=== PATIENT | male | born 1960 | race African-American/Black ===

== ENCOUNTER 2016-11-24 08:26 | Day surgery (SDC) | payer BC ==
[2016-11-18 18:26] VITALS: BMI 31.1
[~2016-11-24 08:26] MED LIST: LACTATED RINGERS 1,000 ML IV SCH; LIDOCAINE 1% 20 ML VIAL (10MG/ML) FOR IV START INTRADERMA PRN
[2016-11-24 08:45] VITALS: TEMP 98
[2016-11-24] MEDS ORDERED: PROPOFOL 10 MG/ML 20 ML VIAL IV ONE (09:43)
--- NOTE | 2016-11-24 09:53 | P.GSHP ---
History of Present Illness H&P Date: 11/24/16 Chief Complaint: Screening colonoscopy Recreation Therapy Aide 56-year-old male referred from Dr. Aden. Patient presents today for screening colonoscopy. He's never had a colonoscopy before. - Constitutional Constitutional: Reports as per HPI Past Medical History Past Medical History: No Reported History Additional Past Medical History / Comment(s): ARTHRITIS WITH PAIN ALL OVER- ( STATES DR HAS TESTING PLANNED) ,CARPAL TUNNEL SYNDROME. History of Any Multi-Drug Resistant Organisms: None Reported Past Surgical History: No Surgical Hx Reported Additional Past Surgical History / Comment(s): EMERGENCY SURGERY 20 YRS AGO TO HAVE METAL REMOVED FROM HEAD. Past Anesthesia/Blood Transfusion Reactions: No Reported Reaction Past Psychological History: No Psychological Hx Reported Smoking Status: Current every day smoker Past Alcohol Use History: None Reported Additional Past Alcohol Use History / Comment(s): SMOKES 1/2 PPD. SMOKING FOR 25-28 YEARS. Past Drug Use History: None Reported - Past Family History Mother Family Medical History: Cancer Additional Family Medical History / Comment(s): OVARIAN CANCER Medications and Allergies Home Medications Medication Instructions Recorded Confirmed Type Ibuprofen [Motrin] 200 - 400 mg PO Q6HR PRN 11/18/16 11/18/16 History Meloxicam [Mobic] 15 mg PO DAILY 11/18/16 11/18/16 History Allergies Allergy/AdvReac Type Severity Reaction Status Date / Time No Known Allergies Allergy Verified 11/18/16 18:18 Surgical - Exam Vital Signs Temp Pulse Resp BP Pulse Ox 98.0 F 70 16 140/97 96 11/24/16 08:40 11/24/16 08:40 11/24/16 08:40 11/24/16 08:40 11/24/16 08:40 - General well developed, no distress - Eyes PERRL - ENT normal pinna - Neck no masses - Respiratory normal expansion - Cardiovascular Rhythm: regular - Abdomen Abdomen: soft, non tender Assessment and Plan Plan: We'll perform screening colonoscopy.
--- NOTE | 2016-11-24 10:08 | P.OP ---
Date of Procedure: 11/24/16 Preoperative Diagnosis: Screening colonoscopy Postoperative Diagnosis: Diverticulosis Sigmoid colon polyp Rectal polyp Procedure(s) Performed: Colonoscopy Anesthesia: MAC Surgeon: Ham Pruitt Pathology: other (Rectal, sigmoid colon polyp) Condition: stable Disposition: PACU Description of Procedure: The patient's placed on the endoscopy table in the lateral position. He received IV sedation. Digital rectal exam was performed which revealed no abnormalities. The flexible colonoscope was then placed patient anus passed throughout the entire colon. The ileocecal valve was visualized. The cecum, ascending and transverse colon appeared normal. In the descending and; there is mild diverticular changes. In the sigmoid colon there was a polyp seen this removed the forcep. The scope was then brought back the rectum and another polyp was seen and this was biopsied removed. The scope was withdrawn for patient.
[2016-11-24] MEDS ORDERED: IV FLUID CONTINUATION 1,000 ML IV ONE (10:09)
[2016-11-24 11:21] VITALS: BP 159/98; PULSE 79; RESP 18
== END 2016-11-24 11:29 | disposition home or self-care (01) ==
LOC: ORWHC2ENDO 08:26
PROVIDERS: ATTEND Surgery
DX: Z12.11 Encounter for screening for malignant neoplasm of colon (principal); K57.30 Diverticulosis of large intestine without perforation or abscess without bleeding; D12.5 Benign neoplasm of sigmoid colon; K62.1 Rectal polyp; F17.200 Nicotine dependence, unspecified, uncomplicated; Z79.1 Long term (current) use of non-steroidal anti-inflammatories (NSAID); Z79.899 Other long term (current) drug therapy
CPT/HCPCS: 88305; 45380; J2704; 99153

== ENCOUNTER 2017-08-24 23:35 | Emergency (ER) | payer BC, OTHER ==
[2017-08-25] MEDS ORDERED: LORazepam 2 MG/ML INJ IM STA (00:08)
--- NOTE | 2017-08-25 00:40 | ED ---
General Adult HPI - General Chief complaint: Shortness of Breath Stated complaint: JODIE Time Seen by Provider: 08/24/17 23:46 Source: patient, family, RN notes reviewed Mode of arrival: wheelchair Limitations: no limitations - History of Present Illness Initial comments: 57 yo male presents with shortness of breath and difficult to breathing. No known history of breathing problems, no asthma, no COPD, patient is a nonsmoker. No history of congestive heart failure. Patient does have history of anxiety, he states this feels like his anxiety. He's recently started on Zoloft. He does take Xanax. He took 0.25 mg Xanax prior to arrival. Patient is tearful. No hallucinations, no suicidal or homicidal ideation. Patient does have chronic left lower extremity pain status post blood clot. - Related Data Home Medications Medication Instructions Recorded Confirmed Ibuprofen [Motrin] 200 - 400 mg PO Q6HR PRN 11/18/16 11/18/16 Meloxicam [Mobic] 15 mg PO DAILY 11/18/16 11/18/16 Previous Rx's Medication Instructions Recorded ALPRAZolam [Xanax] 0.5 mg PO BID PRN #15 tablet 08/25/17 Allergies Allergy/AdvReac Type Severity Reaction Status Date / Time No Known Allergies Allergy Verified 08/24/17 23:42 Review of Systems ROS Statement: Those systems with pertinent positive or pertinent negative responses have been documented in the HPI. ROS Other: All systems not noted in ROS Statement are negative. Past Medical History Past Medical History: No Reported History, Myocardial Infarction ([place]) Additional Past Medical History / Comment(s): ARTHRITIS WITH PAIN ALL OVER- ( STATES DR HAS TESTING PLANNED) ,CARPAL TUNNEL SYNDROME. aneursyn to right leg History of Any Multi-Drug Resistant Organisms: None Reported Past Surgical History: No Surgical Hx Reported Additional Past Surgical History / Comment(s): EMERGENCY SURGERY 20 YRS AGO TO HAVE METAL REMOVED FROM HEAD. Past Anesthesia/Blood Transfusion Reactions: No Reported Reaction Past Psychological History: Anxiety Smoking Status: Former smoker Past Alcohol Use History: None Reported Past Drug Use History: Marijuana - Past Family History Mother Family Medical History: Cancer Additional Family Medical History / Comment(s): OVARIAN CANCER General Exam Limitations: no limitations General appearance: alert, anxious Head exam: Present: atraumatic, normocephalic Eye exam: Present: normal appearance, PERRL ENT exam: Present: normal exam Neck exam: Present: normal inspection. Absent: tenderness, meningismus Respiratory exam: Present: normal lung sounds bilaterally, other (Patient is tachypneic, with excellent bilateral air entry). Absent: wheezes, rales Cardiovascular Exam: Present: regular rate, normal rhythm GI/Abdominal exam: Present: soft. Absent: distended, tenderness Extremities exam: Present: normal inspection, normal capillary refill, other ( Well-healed scar on the left lower extremity). Absent: pedal edema Neurological exam: Present: alert, oriented X3, CN II-XII intact. Absent: motor sensory deficit Psychiatric exam: Present: anxious Skin exam: Present: warm, dry, intact. Absent: cyanosis, diaphoretic Course Vital Signs 08/24/17 08/25/17 23:38 00:00 Temperature 96.9 F L Pulse Rate 78 Respiratory 24 28 H Rate Blood Pressure 175/114 O2 Sat by Pulse 100 Oximetry EKG Findings - EKG Comments: EKG Findings:: EKG shows normal sinus rhythm, ventricular rate 89, ND interval 188, QRS duration 92, QTC [address] segment elevation or depression Medical Decision Making - Medical Decision Making 57-year-old male presents with chief complaint difficulty breathing. Patient does admit to being very anxious. He is tearful on examination. Tachypneic with excellent air entry. Oxygen saturation 100% on room air. Patient is not tachycardic. I did attempt to obtain an x-ray, patient refuses this. States he has had for x-rays in the past several weeks. This is acceptable as patient has good air entry, no concern for pneumonia or pneumothorax. After long discussion with the patient, his symptoms to improve. He is anxious about his recent health history. He has lost his job. There is suicidal ideation. Patient is given intramuscular Ativan. On reevaluation is feeling much better. Not anxious. He does feel that he has a good plan. He has good support system at home including his . Patient will be discharged with outpatient follow-up. Disposition Clinical Impression: Anxiety attack Disposition: HOME SELF-CARE Condition: Good Instructions: Anxiety (ED) Prescriptions: ALPRAZolam [Xanax] 0.5 mg PO BID PRN #15 tablet PRN Reason: Anxiety Referrals: Jared Aden III, MD [Primary Care Provider] - 1-2 days
[2017-08-25 00:54] VITALS: BP 162/113; PULSE 76; RESP 20; TEMP 98.4
== END 2017-08-25 00:52 | disposition home or self-care (01) ==
LOC: EC 23:35
DX: F41.1 Generalized anxiety disorder (principal); R45.851 Suicidal ideations; G89.29 Other chronic pain; M79.605 Pain in left leg; M19.90 Unspecified osteoarthritis, unspecified site; Z87.891 Personal history of nicotine dependence; Z79.1 Long term (current) use of non-steroidal anti-inflammatories (NSAID)
CPT/HCPCS: 99284 ×2; 96372 ×2; 93005; J2060

== ENCOUNTER → 2017-09-06 | Outpatient (CLI) | payer OTHER | DX: R06.02 Shortness of breath (principal) | CPT/HCPCS: 94060; 94726; 94729 ==

== ENCOUNTER → 2018-03-14 | Outpatient (CLI) | payer OTHER | END | disposition home or self-care (01) | LOC: RADUSWWP 12:54 | PROVIDERS: ATTEND Surgery | DX: I70.213 Atherosclerosis of native arteries of extremities with intermittent claudication, bilateral legs (principal) | CPT/HCPCS: 93923 ==

== ENCOUNTER → 2018-11-30 | Outpatient (CLI) | payer OTHER ==
--- NOTE | 2018-12-01 04:35 | CTL ---
EXAMINATION TYPE: CT Low Dose Lung DATE OF EXAM ORDERED: 11/30/2018 HISTORY: 58-year-old male personal hx tobacco use 40 years. Lung cancer screening CT DLP: [address] CTDI: 2.56 mGy Automated exposure control for dose reduction was used. SCREENING VISIT: Baseline COMPARISON: 10/18/[address] angiogram TECHNIQUE: Low dose computed tomography scan was performed through the chest at 1 mm thick sections a nd reconstructed images in the coronal/sagittal plane at 1 mm thick sections. Additional coronal MIP reconstruction performed. CT DIAGNOSTIC QUALITY: Limited, but interpretable FINDINGS: Heart is upper limits of normal in size without pericardial effusion. Aneurysmal ascending aorta now measuring 4.4 cm versus 4.0 cm, previously. Conventional arch vessel b ranching anatomy. Trace bilateral gynecomastia. No thoracic lymphadenopathy by limited low-dose noncontrast CT. [id number] diffuse bronchial wall thickening. Some stranding inferior lingular atelectasis. Pro minent extension of the pericardial recess along the inferior right pulmonary vein. No consolidation or pleural effusion. No suspicious pulmonary nodule or mass is identified. Visualized upper abdomen shows no gross abnormality. Adrenal nodularity seen on the patient's 017 CT shows no evidence progression but are not clearly depicted on the present study due to excessi ve noise. Bones: No osseous destructive process. IMPRESSION: 1. Lung RADS 1 - negative; no suspicious pulmonary nodule or mass. 2. Bronchial wall thickening suggests bronchitis or asthma. 3. Aneurysmal ascending aorta at 4.4 cm (versus 4.0 cm on 10/18/2017). RECOMMENDATION: 1. Continue annual low-dose lung cancer screening CT. 2. Smoking cessation. 3. Consider vascular surgery referral for surveillance of the patient's thoracic aortic aneurysm. FOLLOW UP CT CHEST RECOMMENDATION: [address] LUNG RAD: Lung-Rad 1 Negative
== END ==
LOC: RADCTMAIN 14:38
PROVIDERS: ATTEND Family Medicine
DX: Z12.2 Encounter for screening for malignant neoplasm of respiratory organs (principal); Z87.891 Personal history of nicotine dependence

== ENCOUNTER → 2019-02-01 | Outpatient (CLI) | payer OTHER ==
--- NOTE | 2019-02-01 16:06 | PN ---
PROGRESS NOTE DATE OF SERVICE: 02/01/2019 58-year-old gentleman has been [facility] treatment of obstructive sleep apnea-hypopnea syndrome. Recently patient had diagnostic polysomnogram which showed obstructive sleep apnea with apnea-hypopnea index 16.4. Subsequently, patient had CPAP titration and received his CPAP unit. The patient started to use his CPAP equipment and basically he did not have significant problem with the usage equipment, but he forgot his machine at home when he left town. In the days when he used it, which was 3 nights, the mean pressure was 8.4 cm of water with maximal 9 cm of water. Apnea-hypopnea index on the machine was only 0.4, which is absolutely perfect and it was no significant leak with the mask on these 3 nights when patient used it. [place] Sleepiness Scale today is 4. MEDICATIONS: Losartan, Sertraline, atorvastatin, metoprolol, gabapentin, Eliquis, cilostazol, iron supplement, oxycodone, Ventolin inhaler, Alprazolam. PHYSICAL EXAM: gentleman without distress. BP 128/88, HR 84, RR 16, weight 265, temp 98.5, oxygen saturation at room air 95%. Oropharynx showed extremely low position of the soft palate, Mallampati 4. Neck Supple, no JVD. Thyroid is not palpable. LUNGS Clear to percussion and to auscultation. Good air exchange. No wheezing or rhonchi. HEART S1, S2 regular. No murmurs, gallops, or rubs. ABDOMEN: Slightly obese, soft and nontender. Bowel sounds are present. No organomegaly appreciated. EXTREMITIES No clubbing or cyanosis. MANAGER TRAVEL Awake, alert, and oriented X3. Cranial nerves 2 to 7 intact. There is no fasciculation or atrophy. noted. No focal deficits observed. IMPRESSION: 1. Moderate obstructive sleep apnea-hypopnea syndrome. The patient recently received his CPAP unit. Respirations with treatment on CPAP normalized. No significant problems with CPAP. The patient did not have a chance to use machine for all period of time because he left it home while he left down. 2. Hypertension. 3. Hyperlipidemia. 4. Mild obesity. 5. Asthma. 6. History of anxiety. 7. History of left leg calf atrial thrombosis. PLAN: 1. Patient will use CPAP equipment every night for the whole night. 2. Losing weight. 3. Sleep hygiene with regular time in bed for at least 8 hours. 4. No driving if feeling sleepiness. Thank you very much for allowing me to participate in management of your patient. Sincerely, José Mendoza MD, PhD, FAASM Diplomat of [place] [employer] [facility] MMODL / CHRISTINA: [id number] /
== END | disposition home or self-care (01) ==
LOC: SLEEP 14:21
PROVIDERS: ATTEND Internal Medicine
DX: G47.33 Obstructive sleep apnea (adult) (pediatric) (principal); I10 Essential (primary) hypertension; E78.5 Hyperlipidemia, unspecified; E66.9 Obesity, unspecified; J45.909 Unspecified asthma, uncomplicated; Z86.59 Personal history of other mental and behavioral disorders; Z86.718 Personal history of other venous thrombosis and embolism; Z99.89 Dependence on other enabling machines and devices; Z79.01 Long term (current) use of anticoagulants; Z79.899 Other long term (current) drug therapy

== ENCOUNTER → 2020-08-07 | Outpatient (CLI) | payer MEDICARE ==
--- NOTE | 2020-08-08 12:48 | US ---
EXAMINATION TYPE: US venous doppler duplex LE LT DATE OF EXAM: 08/07/2020 4:27 PM COMPARISON: US 10/19/2017 CLINICAL HISTORY: R22.42 Swelling/lump Localized L leg. SIDE PERFORMED: Left TECHNIQUE: The lower extremity deep venous system is examined utilizing real time linear array sonog richy with graded compression, doppler sonography and color-flow sonography. VESSELS IMAGED: External Iliac Vein (EIV) Common Femoral Vein Deep Femoral Vein Greater Saphenous Vein * Femoral Vein Popliteal Vein Small Saphenous Vein * Proximal Calf Veins (* superficial vessels) Left Leg: Negative for DVT In the left popliteal fossa, there is a complex area visualized measuring 7.5 x 1.7 x 5.3 cm there ar e some low-level internal echoes present. There is normal flow, compressibility, vascular waveforms. IMPRESSION: No evident deep venous thrombosis at or above the left knee. Complicated Barnett's cyst is favored in the popliteal fossa, correlate.
== END | disposition home or self-care (01) ==
LOC: RADUSWWP 16:05
PROVIDERS: ATTEND Nurse Practitioner Family
DX: R22.42 Localized swelling, mass and lump, left lower limb (principal); Z86.718 Personal history of other venous thrombosis and embolism

== ENCOUNTER → 2020-09-08 | Outpatient (CLI) | payer MEDICARE ==
--- NOTE | 2020-09-08 15:52 | CT ---
EXAMINATION TYPE: CT angio chest DATE OF EXAM: 09/08/2020 10:03 AM COMPARISON: CTA chest 10/18/2017. CT low dose lung screening 11/30/2018. HISTORY: Thoracic aortic aneurysm, without rupture CT DLP: 1108.1 mGycm Automated exposure control for dose reduction was used. CONTRAST: CTA scan of the thorax is performed without and with IV Contrast, patient injected with 100 mL of Iso larisa 370, thoracic aortic aneurysm protocol. 3D and MIP reconstructed images are created on an [employer] workstation and reviewed.. FINDINGS: LUNGS: The lungs are grossly clear, there is no concerning parenchymal mass or nodule identified. Re demonstrated mild bronchial wall thickening. There is no pleural effusion or pneumothorax seen. The tracheobronchial tree is patent. MEDIASTINUM: There is satisfactory enhancement of the thoracic aorta and great vessels. There is 4.6 cm ascending thoracic aortic aneurysm, previously 4.4 cm on 11/30/2018 comparison and 4.1 cm on 2016 comparison. No thoracic aortic dissection. Left-sided arch with classic branching pattern. Card iac size upper limits of normal. No pericardial effusion is seen. No mediastinal, hilar, or axillary lymphadenopathy. OTHER: Normal adrenal glands. IMPRESSION: Ascending thoracic aortic aneurysm measures 4.6 cm, previously 4.1 cm on 10/18/2017 comparison.
== END | disposition home or self-care (01) ==
LOC: RADCTMAIN 08:51
PROVIDERS: ATTEND Internal Medicine Interventional Cardiology
DX: I71.2 Thoracic aortic aneurysm, without rupture (principal)
CPT/HCPCS: 71275; Q9967

== ENCOUNTER 2020-10-09 08:53 | Day surgery (SDC) | payer MEDICARE, OTHER ==
[2020-09-17 12:51] VITALS: BMI 33.9
[~2020-10-09 08:53] MED LIST changes: -LIDOCAINE 1% 20 ML VIAL (10MG/ML) FOR IV START INTRADERMA PRN
[2020-10-09 09:46] VITALS: RESP 16; TEMP 97.1
[2020-10-09] MEDS ORDERED: LIDOCAINE 1% (10MG/ML) FOR IV START INTRADERMA ONE (09:48)
[2020-10-09] MEDS ORDERED: PROPOFOL 10 MG/ML 20 ML VIAL IV ONE (09:55)
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
--- NOTE | 2020-10-09 10:10 | P.OP ---
Date of Procedure: 10/09/20 Preoperative Diagnosis: Screening colonoscopy Postoperative Diagnosis: Diverticulosis Rectal polyps Procedure(s) Performed: Colonoscopy Anesthesia: MAC Surgeon: Ham Pruitt Pathology: other (Rectal polyp) Condition: stable Disposition: PACU Description of Procedure: The patient's placed on the endoscopy table in the lateral position. He received IV sedation. Digital rectal exam was performed which revealed no abnormalities. Flexible colonoscope was then placed patient anus passed throughout the entire colon. The ileocecal valve was excised. The scope was then brought back and the ascending colon, transverse colon appeared normal in the descending and sigmoid colon mild diverticular changes. The scope was brought back the rectum into hyperplastic polyp removed. This was done with the cold forcep. Scope was then withdrawn from patient.
[2020-10-09 10:29] VITALS: BP 122/84; PULSE 62
== END 2020-10-09 10:45 | disposition home or self-care (01) ==
LOC: ORWHC2ENDO 08:53
PROVIDERS: ATTEND Surgery
DX: Z12.11 Encounter for screening for malignant neoplasm of colon (principal); K62.1 Rectal polyp; K57.30 Diverticulosis of large intestine without perforation or abscess without bleeding; I25.2 Old myocardial infarction; I10 Essential (primary) hypertension; M19.90 Unspecified osteoarthritis, unspecified site; E78.5 Hyperlipidemia, unspecified; F41.9 Anxiety disorder, unspecified; Z88.6 Allergy status to analgesic agent; Z87.891 Personal history of nicotine dependence; Z79.01 Long term (current) use of anticoagulants; Z79.51 Long term (current) use of inhaled steroids; Z79.899 Other long term (current) drug therapy; Z86.718 Personal history of other venous thrombosis and embolism; Z98.890 Other specified postprocedural states; Z80.41 Family history of malignant neoplasm of ovary
CPT/HCPCS: 88305; 45380; J2704

== ENCOUNTER → 2022-08-05 | Outpatient (CLI) | payer MEDICARE ==
[2022-08-05 18:57] LABS: African American GFR (CKD) 74.1 (60.0-200.0); Anion Gap 11.6 mmol/L (10.00-18.00); BUN/Creat Ratio 7.83 Ratio (12.00-20.00); Blood Urea Nitrogen 9.4 mg/dL (9.0-27.0); Calcium 9.3 mg/dL (8.7-10.3); Carbon Dioxide 25.4 mmol/L (20.0-27.5); Potassium 4.3 mmol/L (3.5-5.5)
== END | disposition home or self-care (01) ==
LOC: LABWHC1 12:14
PROVIDERS: ATTEND Nurse Practitioner
DX: I10 Essential (primary) hypertension (principal)
CPT/HCPCS: 36415; 80048

== ENCOUNTER → 2022-08-24 | Outpatient (CLI) | payer MEDICARE ==
[2022-08-24 15:32] LABS: African American GFR (CKD) >90 (>60 ml/min/1.73 sqM); Blood Urea Nitrogen 10 mg/dL (9-20); Non-African American GFR(CKD) 78 (>60 ml/min/1.73 sqM)
--- NOTE | 2022-08-24 19:09 | CT ---
EXAMINATION TYPE: CT angio chest CT DLP: 1271.9 mGycm, Automated exposure control for dose reduction was used. DATE OF EXAM: 08/24/2022 5:40 PM COMPARISON: 09/08/2020. CLINICAL INDICATION:Male, 62 years old with history of I71.8 AAA; AAA TECHNIQUE/CONTRAST: CTA scan of the thorax is performed with IV Contrast, patient injected with 100cc mL of Isovue 370, p ulmonary embolism protocol. MIP images are created and reviewed. FINDINGS: Pulmonary Artery: There is no evidence for a filling defect within the pulmonary vasculature to sugge st acute pulmonary embolism. The pulmonary artery is of normal size. Lungs/Pleura: No evidence of focal consolidation, pleural effusion or pneumothorax. Airway: Large airways are patent. Heart: Heart is within normal limits for size.. Vasculature: Stable ascending thoracic aorta smooth ectasia measuring up to 46 mm. Mediastinum: No gross evidence of adenopathy. Musculoskeletal: No acute osseous abnormalities Soft Tissues: Unremarkable. Lower neck: No significant findings. Upper Abdomen: No significant findings. IMPRESSION: Stable ascending thoracic aorta smooth ectasia measuring up to 46 mm.
== END | disposition home or self-care (01) ==
LOC: RADCTMAIN 14:25
PROVIDERS: ATTEND Internal Medicine Interventional Cardiology
DX: I77.810 Thoracic aortic ectasia (principal)
CPT/HCPCS: 82565; 84520; 71275; 36415; Q9967

== ENCOUNTER 2022-10-05 19:44 | Emergency (ER) | payer MEDICARE ==
[2022-10-05] MEDS ORDERED: SODIUM CHLORIDE 0.9% 1,000 ML IV STA (20:46)
[2022-10-05] MEDS ORDERED: ONDANSETRON 4 MG/2 ML VIAL IVP STA (20:46)
[2022-10-05] MEDS ORDERED: MIDAZOLAM 1 MG/ML 5 ML VIAL IV STA (20:47)
[2022-10-05 20:55] VITALS: TEMP 97.8
[2022-10-05 21:14] LABS: African American GFR (CKD) >90 (>60 ml/min/1.73 sqM); Albumin 5.3 g/dL (3.5-5.0); Anion Gap 18 mmol/L; Blood Urea Nitrogen 16 mg/dL (9-20); Carbon Dioxide 20 mmol/L (22-30); Chloride 104 mmol/L (98-107); Glucose 127 mg/dL (74-99); Lipase 160 U/L (23-300); Non-African American GFR(CKD) 79 (>60 ml/min/1.73 sqM); Sodium 142 mmol/L (137-145); Total Bilirubin 0.8 mg/dL (0.2-1.3); Total Protein 8.6 g/dL (6.3-8.2)
[2022-10-05 21:24] LABS: Basophils % (A) 0 %; Eosinophils % (A) 0 %; HCT 44.3 % (39.0-53.0); HGB 14.4 gm/dL (13.0-17.5); Lymphocytes # (A) 1.5 k/uL (1.0-4.8); Lymphocytes % (A) 13 %; MCH 27.6 pg (25.0-35.0); MCHC 32.6 g/dL (31.0-37.0); MCV 84.8 fL (80.0-100.0); Mean Platelet Volume 9.6; Monocytes # (A) 0.4 k/uL (0-1.0); Monocytes % (A) 4 %; Neutrophils # (A) 9.4 k/uL (1.3-7.7); Neutrophils % (A) 82 %; Platelet Count 295 k/uL (150-450); RBC 5.22 m/uL (4.30-5.90); RDW 13.4 % (11.5-15.5); WBC 11.5 k/uL (3.8-10.6)
[2022-10-05 21:26] LABS: Partial Thromboplastin Time 25.6 sec (22.0-30.0); Prothrombin Time 10.5 sec (9.0-12.0)
[2022-10-05 21:31] LABS: ALT 40 U/L (4-49); AST 39 U/L (17-59); Alkaline Phosphatase 126 U/L (38-126); Magnesium 1.6 mg/dL (1.6-2.3)
--- NOTE | 2022-10-05 21:51 | XR ---
EXAMINATION TYPE: XR chest 1V portable DATE OF EXAM: 10/05/2022 9:32 PM COMPARISON: Chest radiographs from No evidence 07/24/2015 TECHNIQUE: XR chest 1V portable Portable AP radiograph of the chest. CLINICAL INDICATION:Male, 62 years old with history of chest pain; FINDINGS: Lungs/Pleura: Low lung volumes are present with increased density in the right lung base compared to prior. There is no evidence of pleural effusion, focal consolidation, or pneumothorax. Pulmonary vascularity: Mild pulmonary vascular congestion. Heart/mediastinum: Cardiomediastinal silhouette is unremarkable. Musculoskeletal: No acute osseous pathology. IMPRESSION: Low lung volumes with increased density within the right lung base which could represent atelectasis versus developing airspace disease.
[2022-10-05] MEDS ORDERED: LEVOFLOXACIN 750 MG TAB PO STA (22:09)
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
[2022-10-05 22:53] VITALS: BP 167/97; PULSE 81; RESP 15
== END 2022-10-05 23:02 | disposition home or self-care (01) ==
LOC: EC 19:44
DX: J18.9 Pneumonia, unspecified organism (principal); I82.409 Acute embolism and thrombosis of unspecified deep veins of unspecified lower extremity; I25.2 Old myocardial infarction; F41.9 Anxiety disorder, unspecified; F12.90 Cannabis use, unspecified, uncomplicated; Z79.899 Other long term (current) drug therapy; Z88.6 Allergy status to analgesic agent
CPT/HCPCS: 36415; 93005; 83880; 80053; 83690; 83735; 84484; 85025; 85610; 85730; 71045; 99284; 96374; 96375; 96361; J2405; J2250

== ENCOUNTER 2023-04-05 12:05 | Emergency (ER) | payer MEDICARE ==
[2023-04-05 12:10] VITALS: TEMP 98.4
[2023-04-05 13:02] LABS: Basophils # (A) 0.1 k/uL (0-0.2); Basophils % (A) 1 %; Eosinophils # (A) 0.4 k/uL (0-0.7); Eosinophils % (A) 6 %; HCT 43.8 % (39.0-53.0); HGB 14.2 gm/dL (13.0-17.5); Lymphocytes # (A) 2.7 k/uL (1.0-4.8); Lymphocytes % (A) 39 %; MCH 27.3 pg (25.0-35.0); MCHC 32.4 g/dL (31.0-37.0); MCV 84.4 fL (80.0-100.0); Mean Platelet Volume 8.5; Monocytes # (A) 0.3 k/uL (0-1.0); Monocytes % (A) 4 %; Neutrophils # (A) 3.4 k/uL (1.3-7.7); Neutrophils % (A) 48 %; Platelet Count 296 k/uL (150-450); RDW 13.5 % (11.5-15.5); WBC 7.1 k/uL (3.8-10.6)
--- NOTE | 2023-04-05 13:09 | XR ---
EXAMINATION TYPE: XR foot complete RT DATE OF EXAM: 04/05/2023 COMPARISON: NONE HISTORY: 62 year-old male right foot pain TECHNIQUE: 3 views FINDINGS: Mild to moderate degenerative change first MTP joint with mild joint space narrowing and marginal spu rring. There is some enthesopathy at the base of the fifth metatarsal. Moderate to large sized planta r heel spur. No acute fracture, subluxation, dislocation is seen. IMPRESSION: 1. [id number] first MTP joint OA. 2. Moderate to large sized plantar heel spur. 3. Some enthesopathy at the base of the fifth metatarsal could reflect some insertional peroneus brev is tendinopathy. 4. Otherwise, no acute osseous abnormality seen.
[2023-04-05 13:11] LABS: African American GFR (CKD) >90 (>60 ml/min/1.73 sqM); Anion Gap 7 mmol/L; Blood Urea Nitrogen 11 mg/dL (9-20); Calcium 9.4 mg/dL (8.4-10.2); Carbon Dioxide 29 mmol/L (22-30); Chloride 105 mmol/L (98-107); Glucose 114 mg/dL (74-99); Non-African American GFR(CKD) 84 (>60 ml/min/1.73 sqM); Potassium 3.9 mmol/L (3.5-5.1); Sodium 141 mmol/L (137-145); Uric Acid 6.7 mg/dL (3.5-8.5)
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
[2023-04-05 14:37] VITALS: BP 134/78; PULSE 78; RESP 18
== END 2023-04-05 13:30 | disposition home or self-care (01) ==
LOC: EC 12:05
DX: M79.671 Pain in right foot (principal); I10 Essential (primary) hypertension; I25.2 Old myocardial infarction; F41.9 Anxiety disorder, unspecified; F12.90 Cannabis use, unspecified, uncomplicated; Z79.899 Other long term (current) drug therapy; Z88.6 Allergy status to analgesic agent
CPT/HCPCS: 36415; 80048; 84550; 85025

== ENCOUNTER → 2023-06-24 | Outpatient (CLI) | payer MEDICARE ==
--- NOTE | 2023-06-26 12:55 | CTL ---
EXAMINATION TYPE: CT Low Dose Lung DATE OF EXAM ORDERED: 06/24/2023 HISTORY: 62-year-old male Z87.891, personal history of tobacco use, former smoker with a 30 pack-year history. Lung cancer screening CT DLP: 134.[address] CTDI: 3.70 mGy Automated exposure control for dose reduction was used. SCREENING VISIT: 4 year follow-up from last screening COMPARISON: CTA chest 08/24/2022 TECHNIQUE: Low dose computed tomography scan was performed through the chest with coronal and sagitta l reconstructions. CT DIAGNOSTIC QUALITY: Satisfactory FINDINGS: The heart is upper limits of normal in size without pericardial effusion. Mild proximal LAD and proxi mal circumflex coronary calcifications are present. The aortic root is aneurysmal at 4.4 cm versus 4.2 cm, previously. Ascending aorta aneurysmal at 4.5 cm, unchanged. Conventional arterial vessel branching anatomy. Upper descending thoracic aorta ectatic and 3.1 cm, unchanged. No thoracic lymphadenopathy by CT size criteria. Trace bilateral gynecomastia. A 5 mm anterior right midlung pulmonary nodule, axial image 140 remains unchanged. Some adjacent stra ndy scarring is also unchanged. 5 mm medial left upper lobe pulmonary nodule, axial image 51 is unchanged. No consolidation or pleural effusion. Mild diffuse bronchial wall thickening is redemonstrated. Minimal emphysematous change. Tiny hiatal hernia. Visualized upper abdomen otherwise shows no gross evaluate. Bones: No osseous destructive process. IMPRESSION: 1. LungRADS 2, benign. A couple stable 5 mm pulmonary nodules. 2. COPD with mild emphysema. 3. Aneurysmal ascending aorta (root measuring 4.4 cm versus 4.2 cm previously; and ascending aorta at 4.5 cm, unchanged). CT LUNG RAD AND CT CHEST RECOMMENDATION: Lung-Rad 2 Benign Appearance or Behavior: Continue annual sc reening with LDCT in 12 months. S Modifier (other clinically significant findings): S, ongoing surveillance follow-up for the patient 's ascending aortic aneurysm.
== END | disposition home or self-care (01) ==
LOC: RADCTMAIN 13:35
PROVIDERS: ATTEND Internal Medicine
DX: Z12.2 Encounter for screening for malignant neoplasm of respiratory organs (principal); J43.9 Emphysema, unspecified; I71.21 Aneurysm of the ascending aorta, without rupture; R91.8 Other nonspecific abnormal finding of lung field; Z87.891 Personal history of nicotine dependence
CPT/HCPCS: 71271

== ENCOUNTER → 2023-07-04 | Outpatient (CLI) | payer MEDICARE ==
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
[2023-07-04 14:28] VITALS: BP 128/98; PULSE 98; RESP 15; TEMP 98.9
== END ==
LOC: PNWHC3 13:21
PROVIDERS: ATTEND Specialist
DX: G89.4 Chronic pain syndrome (principal); I73.9 Peripheral vascular disease, unspecified; G62.9 Polyneuropathy, unspecified; I10 Essential (primary) hypertension; I25.2 Old myocardial infarction; M19.90 Unspecified osteoarthritis, unspecified site; G56.00 Carpal tunnel syndrome, unspecified upper limb; Z86.718 Personal history of other venous thrombosis and embolism; Z79.891 Long term (current) use of opiate analgesic; Z87.891 Personal history of nicotine dependence; Z51.81 Encounter for therapeutic drug level monitoring; Z88.8 Allergy status to other drugs, medicaments and biological substances; Z79.899 Other long term (current) drug therapy; Z79.01 Long term (current) use of anticoagulants
CPT/HCPCS: 99213

== ENCOUNTER → 2023-07-21 | Outpatient (CLI) | payer MEDICARE ==
[2023-07-21 15:32] LABS: African American GFR (CKD) >90 (>60 ml/min/1.73 sqM); Anion Gap 6 mmol/L; Blood Urea Nitrogen 12 mg/dL (9-20); Calcium 9.1 mg/dL (8.4-10.2); Carbon Dioxide 30 mmol/L (22-30); Chloride 106 mmol/L (98-107); Glucose 84 mg/dL (74-99); Non-African American GFR(CKD) >90 (>60 ml/min/1.73 sqM); Potassium 3.9 mmol/L (3.5-5.1); Sodium 142 mmol/L (137-145)
--- NOTE | 2023-07-22 07:57 | CT ---
EXAMINATION TYPE: CT angio chest DATE OF EXAM: 07/21/2023 COMPARISON: 08/24/2022 HISTORY: AAA r/o aneurysm CT DLP: 1042.0 mGycm CONTRAST: CTA thoracic aorta with 3-D reconstruction is performed and without and with IV Contrast, patient inj ected with 100 cc mL of Isovue 370. Contrast CTA of the thoracic aorta was performed from the lung apex through the upper abdomen. 3D re construction imaging obtained at a separate workstation. CT Chest: THORACIC AORTA: Uncomplicated ascending thoracic aortic aneurysm measuring 4.5 cm AP dimension versus 4.6 cm previously. The aortic arch and descending thoracic aorta is of normal caliber. Mild atheroma tous changes seen. There is no evidence for dissection or periaortic collection. LUNGS: The lungs are clear and free of infiltrate or atelectasis. No pulmonary nodule or mass is det ected. No pleural effusion or CT evidence of interstitial lung disease. MEDIASTINUM: No evidence for mediastinal hematoma. The heart is not enlarged. No evidence for med iastinal mass or adenopathy. HILAR STRUCTURES: No evidence for mass. No hilar adenopathy is appreciated. OTHER: No significant abnormality. IMPRESSION- Uncomplicated ascending thoracic aortic aneurysm.
== END | disposition home or self-care (01) ==
LOC: RADCTMAIN 14:46
PROVIDERS: ATTEND Internal Medicine Interventional Cardiology
DX: I71.21 Aneurysm of the ascending aorta, without rupture (principal)
CPT/HCPCS: 80048; 71275; 36415; Q9967

== ENCOUNTER → 2024-10-22 | Outpatient (CLI) | payer MEDICARE ==
[2024-10-22 15:17] LABS: African American GFR (CKD) >90 (>60 ml/min/1.73 sqM); Blood Urea Nitrogen 10 mg/dL (9-20); Non-African American GFR(CKD) >90 (>60 ml/min/1.73 sqM)
--- NOTE | 2024-10-22 19:15 | CT ---
EXAMINATION TYPE: CT angio chest DATE OF EXAM: 10/22/2024 6:18 PM COMPARISON: 07/21/2023 CLINICAL INDICATION: Male, 64 years old with history of I71.21 ANEURYSM OF THE ASCENDING AORTA, WITHO UT RU; F/u for aneurysm of the ascending aorta, without rupture. TECHNIQUE/CONTRAST: CTA scan of the thorax is performed without and with IV Contrast, patient injected with 100ml mL of I sovue 370, MIP images are created and reviewed these are created on a separate workstation.. CT DLP: 1370.4 mGycm, Automated exposure control for dose reduction was used. FINDINGS: Lungs/Pleura: No evidence for focal consolidation, pneumothorax or pleural effusion. Airway: Large airways are patent. Heart: Heart is within normal limits for size. Vasculature: Ascending thoracic aorta ectasia measuring up to 48 mm. rNo evidence for intramural agnes jorge luis on noncontrast imaging. No evidence of intimal flap to suggest dissection. No aneurysm identifie d. Scattered atherosclerotic disease. There is no evidence for a filling defect within the pulmonary vasculature to suggest acute pulmonary embolism. The pulmonary artery is of normal size. Scattered mild atherosclerotic disease. Mediastinum: No gross evidence of adenopathy. Musculoskeletal: No acute osseous abnormalities Soft Tissues/lymph nodes: Unremarkable. Lower neck: No significant findings. Upper Abdomen: No significant findings. IMPRESSION: No evidence for aortic aneurysm, dissection or occlusion. No evidence for pulmonary embolus in the ce ntral pulmonary vasculature.; Similar ascending thoracic aorta ectasia up to 40 mm [facility] Evan Gambino, , 10/22/2024 7:13 PM
== END | disposition home or self-care (01) ==
LOC: RADCTMAIN 14:28
PROVIDERS: ATTEND Internal Medicine Interventional Cardiology
DX: I71.21 Aneurysm of the ascending aorta, without rupture (principal)
CPT/HCPCS: 82565; 84520; 71275; 36415; Q9967